=== PATIENT | female | born 1990 | race Two or more races ===

== ENCOUNTER 2019-05-14 12:21 | Inpatient (IN) | payer OTHER ==
[2019-05-14] MEDS ORDERED: METHYLERGONOVINE 0.2 MG INJ IM (14:30)
[2019-05-14] MEDS ORDERED: OXYTOCIN 30 UNITS/LR 500 ML IV ×2 (14:30)
[2019-05-14] MEDS ORDERED: LIDOCAINE 1% (MPF) 30 ML INJ INJ (14:30)
[2019-05-14] MEDS ORDERED: CARBOPROST 250 MCG INJ IM (14:30)
[2019-05-14] MEDS ORDERED: MISOPROSTOL 200 MCG TAB PR (14:30)
[2019-05-14] MEDS: BUTORPHANOL 2 MG INJ IV (21:59)
[2019-05-14] MEDS: LACTATED RINGER'S 1,000 ML IV ×2 (22:08→22:13)
[2019-05-15] MEDS ORDERED: ONDANSETRON 4 MG INJ IV ×3 (08:00→11:30)
[2019-05-15] MEDS: LACTATED RINGER'S 1,000 ML IV ×2 (08:03→10:08)
[2019-05-15] MEDS: ONDANSETRON 4 MG INJ IV (08:13)
[2019-05-15] MEDS: OXYTOCIN 30 UNITS/LR 500 ML IV ×3 (08:53→18:17)
[2019-05-15] MEDS: AZITHROMYCIN 500MG/NS (PMX) 250 ML IVPB (10:30)
[2019-05-15] MEDS ORDERED: EPHEDrine 25 MG/5 ML SYG (10:41)
[2019-05-15] MEDS ORDERED: CEFAZOLIN 1 GM INJ (10:41)
[2019-05-15] MEDS ORDERED: PHENYLephrine (100 MCG/ML) 5ML SYG (10:41)
[2019-05-15] MEDS ORDERED: METOCLOPRAMIDE 10 MG INJ (10:42)
[2019-05-15] MEDS ORDERED: morphine SULFATE/PF (10 MG/10 ML) INJ (11:08)
[2019-05-15] MEDS ORDERED: KETOROLAC 30 MG INJ IV (11:30)
[2019-05-15] MEDS ORDERED: FENTAnyl 50 MCG/ML VIAL IV (11:30)
[2019-05-15] MEDS ORDERED: NALOXONE (0.4 MG/ML) INJ IV (11:30)
[2019-05-15] MEDS ORDERED: DIPHENHYDRAMINE 50 MG INJ IV ×2 (11:30)
[2019-05-15] MEDS ORDERED: HYDROmorphONE 1 MG/5 ML IV SYRINGE IV ×2 (11:30)
[2019-05-15] MEDS ORDERED: METOCLOPRAMIDE 10 MG INJ IV (11:30)
[2019-05-15] MEDS ORDERED: ALBUTEROL 0.083% (NEB) 2.5 MG/3 ML AMP HHN (11:30)
[2019-05-15] MEDS: TERBUTALINE 1 MG/ML INJ SC (12:33)
[2019-05-15] MEDS: CEFAZOLIN 2 GM/50 ML (PMX) 50 ML IVPB (12:34)
[2019-05-15] MEDS: FENTAnyl 50 MCG/ML VIAL IV (12:43)
[2019-05-15] MEDS: KETOROLAC 30 MG INJ IV ×2 (13:20→20:02)
[2019-05-15] MEDS ORDERED: MISOPROSTOL 200 MCG TAB PR (15:00)
[2019-05-15] MEDS ORDERED: METHYLERGONOVINE 0.2 MG INJ IM (15:00)
[2019-05-15] MEDS ORDERED: OXYTOCIN 30 UNITS/LR 500 ML IV (15:00)
[2019-05-15] MEDS ORDERED: CARBOPROST 250 MCG INJ IM (15:00)
[2019-05-15] MEDS: HYDROmorphONE 0.5 MG/0.5 ML SYG IV ×2 (15:54→21:30)
[2019-05-15] MEDS: SENNA/DOCUSATE NA (8.6MG/50MG) TAB PO (21:30)
[2019-05-16] MEDS: HYDROmorphONE 0.5 MG/0.5 ML SYG IV (01:29)
[2019-05-16] MEDS: KETOROLAC 30 MG INJ IV ×2 (03:07→08:42)
[2019-05-16] MEDS: LACTATED RINGER'S 1,000 ML IV (04:35)
[2019-05-16] MEDS: IBUPROFEN 800 MG TAB PO ×3 (06:00→21:39)
[2019-05-16] MEDS: SENNA/DOCUSATE NA (8.6MG/50MG) TAB PO ×2 (08:42→20:48)
[2019-05-16] MEDS: OXYCODONE/ACETAMINOPHEN (5/325) TAB PO ×2 (11:44→17:07)
[2019-05-17] MEDS: OXYCODONE/ACETAMINOPHEN (5/325) TAB PO ×4 (00:15→17:45)
[2019-05-17] MEDS: IBUPROFEN 800 MG TAB PO ×3 (05:23→21:29)
[2019-05-17] MEDS: SENNA/DOCUSATE NA (8.6MG/50MG) TAB PO ×2 (09:23→21:29)
[2019-05-17] MEDS: LANOLIN HPA 1 PKT TOP (17:44)
[2019-05-18] MEDS: OXYCODONE/ACETAMINOPHEN (5/325) TAB PO ×2 (01:54→09:30)
[2019-05-18] MEDS: IBUPROFEN 800 MG TAB PO (05:38)
[2019-05-18] MEDS: DIPHTH/TET/ACEL PERTUSS (ADULT) 0.5 ML VIAL IM* (09:00)
[2019-05-18] MEDS: SENNA/DOCUSATE NA (8.6MG/50MG) TAB PO (09:29)
== END 2019-05-18 18:58 | disposition home or self-care (01) | DRG 788 ==
LOC: OBT 12:21 → L-D 05-15 07:36 → OBT 14:15 → PP1 05-15 14:21 → L-D 14:34
PROC: 10D00Z1 Extraction of Products of Conception, Low, Open Approach (ICD-10-PCS; principal; 2019-05-15 10:30)
PROC: 10907ZC Drainage of Amniotic Fluid, Therapeutic from Products of Conception, Via Natural or Artificial Opening (ICD-10-PCS; 2019-05-15 10:30)
DX: O82 Encounter for cesarean delivery without indication (principal); Z37.0 Single live birth; Z3A.39 39 weeks gestation of pregnancy
CPT/HCPCS: 36415; 76815; 76818; 82803; 85025; 85610; 85730; 86592; 86850; 86900; 86901; 87340; 88307; 99464